=== PATIENT | female | born 1960 | race Two or more races ===

== ENCOUNTER 2017-03-02 14:00 | Day surgery (SDC) | payer OTHER ==
[~2017-03-02] VITALS: Ht 162.6 cm; Wt 104.5 kg
[2017-03-02] MEDS ORDERED: HYDR-2443 PO (14:17)
[2017-03-02] MEDS ORDERED: KETOROLAC 30 MG/1 ML ONE ×2 (14:43→19:26)
[2017-03-02] MEDS ORDERED: ONDANSETRON 2MG/ML, 2ML ONE ×2 (14:43→18:51)
[2017-03-02] MEDS ORDERED: HYDROmorphone 1 MG/ML, 1ML ONE (14:43)
[2017-03-02] MEDS: SODIUM CHLORIDE 0.9% 1,000 ML IV ONE ×2 (14:45→17:03)
[2017-03-02] MEDS ORDERED: METF500T4 PO (14:57)
[2017-03-02] MEDS ORDERED: PLEASE ENTER ALLERGIES MC SCH ×2 (15:00)
[2017-03-02] MEDS ORDERED: ONDANSETRON 2MG/ML, 2ML IVPush ONE (15:00)
[2017-03-02] MEDS ORDERED: KETOROLAC 30 MG/1 ML IVPush ONE (15:00)
[2017-03-02] MEDS ORDERED: SODIUM CHLORIDE FLUSH 10ML SYR IVF ONE (15:00)
[2017-03-02] MEDS ORDERED: HYDROmorphone 1 MG/ML, 1ML IVPush PRN (15:00)
[2017-03-02 15:06] LABS: HEMATOCRIT 42.5 % (34.6-47.8); HEMOGLOBIN 14.5 g/dL (11.7-16.4); WHITE BLOOD COUNT 17.6 x10^3/uL (3.4-10)
[2017-03-02 15:13] LABS: BLOOD UREA NITROGEN 18 mg/dL (7-18)
[2017-03-02] MEDS ORDERED: CEFTRIAXONE PMX 1GM/50ML 50 ML IVPB ONE (16:00)
[2017-03-02] MEDS ORDERED: SODIUM CHLORIDE 0.9% 1,000ML IVBOLUS ONE (16:00)
[2017-03-02] MEDS ORDERED: CEFTRIAXONE PMX 1GM/50ML 50 ML ONE (16:00)
[2017-03-02] MEDS ORDERED: INSULIN REGULAR 100 UNITS/ML, 3ML VIAL SQ-INSULIN ONE (16:30)
[2017-03-02] MEDS ORDERED: INSULIN REGULAR 100 UNITS/ML, 3ML VIAL ONE (17:00)
[2017-03-02 17:10] VITALS: BP 115/63
[2017-03-02] MEDS ORDERED: FENTANYL PF 100 MCG/2ML ONE ×2 (18:21)
[2017-03-02] MEDS ORDERED: MIDAZOLAM 1 MG/ML, 2ML ONE (18:22)
[2017-03-02] MEDS ORDERED: PROPOFOL 10 MG/ML, 20ML ONE (18:25)
[2017-03-02] MEDS ORDERED: ROCURONIUM 10 MG/ML,10ML ONE (18:41)
[2017-03-02] MEDS ORDERED: GLYCOPYRROLATE 0.2MG/1ML, 5ML ONE (18:41)
[2017-03-02] MEDS ORDERED: NEOSTIGMINE 1 MG/ML, 10ML ONE (18:41)
[2017-03-02] MEDS ORDERED: hydrALAzine 20 MG/ML, 1ML IV PRN (19:00)
[2017-03-02] MEDS ORDERED: LABETALOL 5MG/ML, 20ML IV PRN (19:00)
[2017-03-02] MEDS ORDERED: ONDANSETRON 2MG/ML, 2ML IVPush PRN (19:00)
[2017-03-02] MEDS ORDERED: FENTANYL PF 100 MCG/2ML IV PRN (19:00)
[2017-03-02] MEDS ORDERED: MEPERIDINE/PF 25MG/0.5ML IVPush PRN (19:00)
[2017-03-02] MEDS ORDERED: PROMETHAZINE 25 MG/ML, 1ML IV PRN (19:00)
[2017-03-02] MEDS ORDERED: OXYcodone 5 MG/5 ML ORAL.SOL UDC PO PRN (19:00)
[2017-03-02] MEDS ORDERED: HYDROmorphone 1 MG/ML, 1ML IV PRN (19:00)
[2017-03-02] MEDS ORDERED: PHENYLEPHRINE 10 MG/ML ONE ×2 (19:04)
[2017-03-02] MEDS ORDERED: OXYcodone 5 MG/5 ML ORAL.SOL UDC ONE (19:51)
[2017-03-02] MEDS ORDERED: OXYC-302 PO (22:58)
== END 2017-03-02 23:35 | disposition home or self-care (01) ==
LOC: ED 16:06 → UNDOADMIN 16:36 → SDC 16:36 → EDIP 16:36 → 4NOR 20:30 → SDC 23:35 → UNDODISIN 23:35
PROVIDERS: ATTEND Internal Medicine
DX: N20.1 Calculus of ureter (principal); E11.9 Type 2 diabetes mellitus without complications
CPT/HCPCS: 36415; 52356; 74176; 80048; 81003; 82040; 82360; 82962; 83605; 85025; 85610; 87040; 88300; 96361; 96365; 96375; 99285; C1758; C1769; C2617; J0696; J1170; J1885; J2250; J2370; J2405; J2704; J2710; J3010; J7030; J3490